=== PATIENT | male | born 1980 | race Caucasian/White ===

== ENCOUNTER 2018-07-20 13:29 | Inpatient (IN) | payer MEDICAID ==
[~2018-07-20] VITALS: Ht 185.4 cm; Wt 145.6 kg
--- NOTE | ~2018-07-20 | MORECARE ---
CASE MANAGEMENT DISCHARGE SUMMARY PATIENT: ALESSANDRO DAWSON UNIT: [id number] ADM DATE: 07/20/18 AGE: 38 : [birth year] SEX: M ROOM/BED: D.2207 AUTHOR: MERCED,DOC PHYSICIAN: REFERRING PHYSICIAN: DONNA CARRANZA MD DATE OF SERVICE: 07/25/18 Discharge Plan Patient Name: ALESSANDRO DAWSON Facility: [facility]:[place] : 1980 Planned Disposition: Home Anticipated Discharge Date: Discharge Date: Expected LOS: Initial Reviewer: [email or web address] Initial Review Date: 07/20/2018 Generated: 07/25/18 2:47 pm Comments DCP- Discharge Planning Updated by [email or web address]: Gisella Carter on 07/25/18 12:[address] Patient Name: ALESSANDRO DAWSON Admission Status: ER Accout number: [id number] Admission Date: 07-20-2018 : 1980 Admission Diagnosis:CUTANEOUS ABSCESS OF GROIN Attending: DONNA CARRANZA Current LOS: 5 Anticipated DC Date: Planned Disposition: Home Primary Insurance: MEDICAID [place] Discharge Planning Comments: CM met with patient to assess discharge planning needs. Patient lives independently at home where he plans to return today. His parents will be the one to drive him home. He states that he is independent with his care at home and denies any community or needs at this time. We did discuss him getting a PCP and nutrition for wound healing. CM will continue to follow and assist with dc planning as needed Mechanical Equipment Sales Engineer: Gisella Carter DCPIA - Discharge Planning Initial Assessment Updated by [email or web address]: Gisella Carter on 07/25/18 1:36 pm * Is the patient Alert and Oriented? Yes * How many steps to enter\exit or inside your home? 25 * PCP NONE * Pharmacy [facility] [place] * Preadmission Environment Home with Family * ADLs Independent * Equipment None * List name and contact numbers for known caregivers / representatives who currently or will assist patient after discharge: ANDRES (SISTER) [phone] * Verbal permission to speak to the caregivers and representatives has been obtained from the patient. Yes * Community resources currently utilized None * Additional services required to return to the preadmission environment? No * Can the patient safely return to the preadmission environment? Yes * Has this patient been hospitalized within the prior 30 days at any hospital? No Patient Name: ALESSANDRO DAWSON Page 00075 at 1347 All edits/amendments must be made on the electronic document DICTATION DATE: 07/25/181345 MEAL COOK: ROULA 07/25/18 1346 RPT#: [id number] DC DATE: STATUS: ADM IN [facility] [address] [place] [address] END OF REPORT
--- NOTE | ~2018-07-20 | MORECARE ---
CASE MANAGEMENT DISCHARGE SUMMARY PATIENT: ALESSANDRO DAWSON UNIT: [id number] ADM DATE: 07/20/18 AGE: 38 : [birth year] SEX: M ROOM/BED: D.2207 AUTHOR: MERCEDDOC PHYSICIAN: REFERRING PHYSICIAN: DONNA CARRANZA MD DATE OF SERVICE: 08/01/18 Discharge Plan Patient Name: ALESSANDRO DAWSON Facility: [facility]:[place] : 1980 Planned Disposition: Home Anticipated Discharge Date: Discharge Date: 07/25/2018 Expected LOS: 0 Initial Reviewer: [email or web address] Initial Review Date: 07/20/2018 Generated: 08/01/18 9:08 am Comments DCP- Discharge Planning Updated by [email or web address]: Gisella Carter on 07/25/18 12:[address] Patient Name: ALESSANDRO DAWSON Admission Status: ER Accout number: [id number] Admission Date: 07-20-2018 : 1980 Admission Diagnosis:CUTANEOUS ABSCESS OF GROIN Attending: DONNA CARRANZA Current LOS: 5 Anticipated DC Date: Planned Disposition: Home Primary Insurance: MEDICAID [place] Discharge Planning Comments: CM met with patient to assess discharge planning needs. Patient lives independently at home where he plans to return today. His parents will be the one to drive him home. He states that he is independent with his care at home and denies any community or needs at this time. We did discuss him getting a PCP and nutrition for wound healing. CM will continue to follow and assist with dc planning as needed Commanding Officer Homicide Squad: Gisella Carter DCPIA - Discharge Planning Initial Assessment Updated by [email or web address]: Gisella Carter on 07/25/18 1:36 pm * Is the patient Alert and Oriented? Yes * How many steps to enter\exit or inside your home? 25 * PCP NONE * Pharmacy [facility] [place] * Preadmission Environment Home with Family * ADLs Independent * Equipment None * List name and contact numbers for known caregivers / representatives who currently or will assist patient after discharge: ANDRES (SISTER) [phone] * Verbal permission to speak to the caregivers and representatives has been obtained from the patient. Yes * Community resources currently utilized None * Additional services required to return to the preadmission environment? No * Can the patient safely return to the preadmission environment? Yes * Has this patient been hospitalized within the prior 30 days at any hospital? No Last DP export: 07/25/18 12:47 Patient Name: ALESSANDRO DAWSON Page [id number] at 0808 All edits/amendments must be made on the electronic document DICTATION DATE: 08/01/18806 CIRCULAR STUFFER: ROULA 08/01/18806 RPT#: [id number] DC DATE:07/25/18 STATUS: DIS IN [facility] [address] [place] [address] END OF REPORT
--- NOTE | ~2018-07-20 | OP ---
PATIENT NAME: ALESSANDRO DAWSON MEDICAL RECORD: [id number] :[birth year] LOCATION:[facility] ADMISSION DATE:07/20/18 SURGEON: ALEKSANDER CARRANZA MD DATE OF OPERATION: 07/21/2018 PREOPERATIVE DIAGNOSIS: Subcutaneous right groin abscess. POSTOPERATIVE DIAGNOSIS: Subcutaneous right groin abscess. PROCEDURE: Excisional debridement of subcutaneous right groin abscess with marsupialization and packing of the wound. Dimensions of the debridement, including margins, measured 4.8 cm x 3.0 cm and was 6 cm in depth. This tunneled to the right and to the left at the 10 o'clock position as well as from the 2 o'clock to 4 o'clock position. SURGEON: Aleksander Carranza MD POWER TOOL REPAIR TECHNICIAN: None. BLOOD LOSS: Minimal. ANESTHESIA: General. COMPLICATIONS: None. The risks, possible complications and alternatives to procedure were explained to the patient. He elects to proceed. OPERATIVE COURSE: The patient was conveyed to the operating room electively on 07/21/2018. General anesthesia was induced by the anesthesia staff. The genitals were sterilely prepped and draped. Through the use of double curvilinear incisions, I excised the skin and subcutaneous tissue overlying the abscess cavity. The excised tissue are consistent of skin and subcutaneous tissue as well as abscess cavity. I encountered a large amount of beige pus. This was cultured. It was aspirated. I excised some more of the skin and subcutaneous tissue as well as a portion of the overlying abscess cavity. The final excised margins are listed above. The excision was performed sharply with a scalpel and was performed back to healthy bleeding tissue. I curetted out the wound with a bone curette. I then marsupialized the wound with a running locking 3-0 Vicryl Rapide suture. I then packed the wound with 4-inch Kerlix soaked in quarter strength Dakin's. A sterile dressing was applied. The patient was then extubated and conveyed to post-anesthesia care unit where he was in stable condition. I will plan for him to stay in the hospital for 2 to 3 days on intravenous antibiotics. I will obtain an infectious disease consultation. I will plan to unpack the wound in 2 to 3 days. TRANSINT:[id number] Voice Confirmation ID: [id number] DOCUMENT ID: [id number] OPERATIVE REPORT [id number] BROWN,ALEKSANDER LOVE MD at 1004 CC: ALEKSANDER ROBERTS MD and Shady CELESTIN [id number] DICTATION DATE: 07/21/18 1431 VAN CDL DRIVER: 07/21/18 1448 ADM IN [facility] [address] [place] [id number]
[2018-07-20 16:58] LABS: BASOPHILS 0.1 % (0-2); EOSINOPHILS 0.4 % (0-7); HEMATOCRIT 40.4 % (42.0-54.0); HEMOGLOBIN 14.5 g/dL (13.5-17.5); IMMATURE GRANULOCYTES 0.4 % (0-5); LYMPHOCYTES 17.9 % (15-50); MCH 31.7 pg (26.0-34.0); MCHC 35.9 g/dL (31.0-37.0); MCV 88.4 fL (80.0-100.0); MEAN PLATELET VOLUME 9.2 fL (7.4-10.4); MONOCYTES 10.8 % (2-11); NEUTROPHILS 70.4 % (40-80); PLATELET COUNT 277 10x3/uL (130-400); RBC 4.57 10x6/uL (4.20-6.10); RDW 11.5 % (11.5-14.5); WBC 17.6 10x3/uL (4.8-10.8)
[2018-07-20 17:19] LABS: ALBUMIN 2.6 g/dL (3.4-5.0); ALKALINE PHOSPHATASE 108 U/L (46-116); ALT (SGPT) 18 U/L (10-68); BILIRUBIN - TOTAL 0.45 mg/dL (0.2-1.3); CALC OSMOLALITY 275 mosm/kg (275-300); CALCIUM 9.4 mg/dL (8.5-10.1); CARBON DIOXIDE 24.9 mmol/L (21.0-32.0); CHLORIDE - SERUM 96 mmol/L (98-107); CREATININE - SERUM 0.9 mg/dL (0.6-1.3); POTASSIUM - SERUM 4.3 mmol/L (3.5-5.1); PROTEIN - SERUM 7.6 g/dL (6.4-8.2); SODIUM 132 mmol/L (136-145); UREA NITROGEN 11 mg/dL (7-18); eGFR NON AFRICAN AMERICAN > 90 mL/min (90-120)
[2018-07-20 17:22] LABS: GLUCOSE 321 mg/dL (74-106)
[2018-07-20 23:13] VITALS: BP 139/85; BMI 42.4
[2018-07-21 04:10] LABS: APPEARANCE CLEAR (CLEAR); BILIRUBIN NEGATIVE (NEGATIVE); COLOR YELLOW (YELLOW); GLUCOSE 1000 mg/dL (NEGATIVE); KETONE SMALL mg/dL (NEGATIVE); NITRITE NEGATIVE (NEGATIVE); PROTEIN NEGATIVE (NEGATIVE); UROBILINOGEN NORMAL (NORMAL)
[2018-07-21 05:12] VITALS: BP 139/85
[2018-07-21 05:18] VITALS: BP 115/82
[2018-07-21 06:00] LABS: BASOPHILS 0.1 % (0-2); EOSINOPHILS 0.7 % (0-7); HEMATOCRIT 38.3 % (42.0-54.0); HEMOGLOBIN 13.3 g/dL (13.5-17.5); IMMATURE GRANULOCYTES 0.3 % (0-5); LYMPHOCYTES 17.4 % (15-50); MCH 31.1 pg (26.0-34.0); MCHC 34.7 g/dL (31.0-37.0); MCV 89.7 fL (80.0-100.0); MEAN PLATELET VOLUME 9.5 fL (7.4-10.4); MONOCYTES 10.2 % (2-11); NEUTROPHILS 71.3 % (40-80); PLATELET COUNT 291 10x3/uL (130-400); RBC 4.27 10x6/uL (4.20-6.10); RDW 11.8 % (11.5-14.5); WBC 15.3 10x3/uL (4.8-10.8)
[2018-07-21 06:27] LABS: ALBUMIN 2.2 g/dL (3.4-5.0); ALKALINE PHOSPHATASE 95 U/L (46-116); ALT (SGPT) 20 U/L (10-68); CALC OSMOLALITY 278 mosm/kg (275-300); CALCIUM 8.3 mg/dL (8.5-10.1); CHLORIDE - SERUM 99 mmol/L (98-107); CREATININE - SERUM 0.8 mg/dL (0.6-1.3); GLUCOSE 356 mg/dL (74-106); POTASSIUM - SERUM 4.1 mmol/L (3.5-5.1); PROTEIN - SERUM 6.5 g/dL (6.4-8.2); SODIUM 133 mmol/L (136-145); UREA NITROGEN 9 mg/dL (7-18); eGFR NON AFRICAN AMERICAN > 90 mL/min (90-120)
[2018-07-21 08:45] VITALS: BP 116/85
[2018-07-21 12:45] VITALS: BP 127/80
[2018-07-21 14:23] VITALS: Ht 185.4 cm; Wt 145.6 kg
[2018-07-21 15:14] VITALS: BP 115/70
[2018-07-21 20:00] VITALS: BP 106/63
[2018-07-22] VITALS: BP 134/77
[2018-07-22 04:00] VITALS: BP 123/82
[2018-07-22 05:07] LABS: BASOPHILS 0.2 % (0-2); HEMATOCRIT 37.2 % (42.0-54.0); HEMOGLOBIN 12.9 g/dL (13.5-17.5); IMMATURE GRANULOCYTES 0.4 % (0-5); MCH 31.4 pg (26.0-34.0); MCHC 34.7 g/dL (31.0-37.0); MCV 90.5 fL (80.0-100.0); MEAN PLATELET VOLUME 9.2 fL (7.4-10.4); MONOCYTES 10.3 % (2-11); NEUTROPHILS 68.1 % (40-80); PLATELET COUNT 266 10x3/uL (130-400); RBC 4.11 10x6/uL (4.20-6.10); RDW 11.8 % (11.5-14.5); WBC 13.6 10x3/uL (4.8-10.8)
[2018-07-22 05:29] LABS: ALBUMIN 1.9 g/dL (3.4-5.0); ALKALINE PHOSPHATASE 97 U/L (46-116); ALT (SGPT) 19 U/L (10-68); BILIRUBIN - TOTAL 0.28 mg/dL (0.2-1.3); CALC OSMOLALITY 277 mosm/kg (275-300); CALCIUM 8.2 mg/dL (8.5-10.1); CARBON DIOXIDE 25.7 mmol/L (21.0-32.0); CHLORIDE - SERUM 98 mmol/L (98-107); CREATININE - SERUM 0.9 mg/dL (0.6-1.3); GLUCOSE 338 mg/dL (74-106); MAGNESIUM - SERUM 1.7 mg/dL (1.8-2.4); PHOSPHOROUS 2.9 mg/dL (2.5-4.9); PROTEIN - SERUM 6.4 g/dL (6.4-8.2); SODIUM 133 mmol/L (136-145); UREA NITROGEN 10 mg/dL (7-18); eGFR NON AFRICAN AMERICAN > 90 mL/min (90-120)
[2018-07-22 09:12] VITALS: BP 131/83
[2018-07-22 13:46] VITALS: BP 136/86
[2018-07-22 16:49] VITALS: BP 142/88
[2018-07-22 20:00] VITALS: BP 129/72
[2018-07-23 04:00] VITALS: BP 137/86
[2018-07-23 12:33] VITALS: BP 117/74
[2018-07-23 17:34] VITALS: BP 142/95
[2018-07-23 19:50] VITALS: BP 140/80
[2018-07-24] VITALS: BP 122/81
[2018-07-24 04:00] VITALS: BP 140/86
[2018-07-24 05:28] LABS: BASOPHILS 0.3 % (0-2); EOSINOPHILS 3.4 % (0-7); HEMATOCRIT 35.9 % (42.0-54.0); HEMOGLOBIN 12.3 g/dL (13.5-17.5); IMMATURE GRANULOCYTES 0.8 % (0-5); LYMPHOCYTES 27.6 % (15-50); MCH 30.9 pg (26.0-34.0); MCHC 34.3 g/dL (31.0-37.0); MCV 90.2 fL (80.0-100.0); MEAN PLATELET VOLUME 9.3 fL (7.4-10.4); MONOCYTES 8.7 % (2-11); NEUTROPHILS 59.2 % (40-80); RBC 3.98 10x6/uL (4.20-6.10); RDW 11.7 % (11.5-14.5)
[2018-07-24 05:34] LABS: PLATELET COUNT 330 10x3/uL (130-400)
[2018-07-24 06:09] LABS: CALC OSMOLALITY 286 mosm/kg (275-300); CALCIUM 8.9 mg/dL (8.5-10.1); CARBON DIOXIDE 25.5 mmol/L (21.0-32.0); CHLORIDE - SERUM 101 mmol/L (98-107); CREATININE - SERUM 0.8 mg/dL (0.6-1.3); GLUCOSE 367 mg/dL (74-106); POTASSIUM - SERUM 4.1 mmol/L (3.5-5.1); SODIUM 136 mmol/L (136-145); UREA NITROGEN 12 mg/dL (7-18); eGFR NON AFRICAN AMERICAN > 90 mL/min (90-120)
[2018-07-24 16:49] VITALS: BP 140/78
[2018-07-24 20:00] VITALS: BP 134/83
[2018-07-25 04:00] VITALS: BP 134/77
[2018-07-25 05:49] LABS: BASOPHILS 0.4 % (0-2); EOSINOPHILS 2.7 % (0-7); HEMATOCRIT 38.9 % (42.0-54.0); HEMOGLOBIN 13.4 g/dL (13.5-17.5); IMMATURE GRANULOCYTES 1.1 % (0-5); LYMPHOCYTES 31.4 % (15-50); MCH 31.3 pg (26.0-34.0); MCHC 34.4 g/dL (31.0-37.0); MCV 90.9 fL (80.0-100.0); MEAN PLATELET VOLUME 9.3 fL (7.4-10.4); MONOCYTES 8.7 % (2-11); NEUTROPHILS 55.7 % (40-80); PLATELET COUNT 385 10x3/uL (130-400); RBC 4.28 10x6/uL (4.20-6.10); RDW 11.9 % (11.5-14.5)
[2018-07-25 05:58] LABS: CALC OSMOLALITY 289 mosm/kg (275-300); CALCIUM 9.2 mg/dL (8.5-10.1); CARBON DIOXIDE 28.8 mmol/L (21.0-32.0); CHLORIDE - SERUM 100 mmol/L (98-107); CREATININE - SERUM 0.9 mg/dL (0.6-1.3); GLUCOSE 372 mg/dL (74-106); SODIUM 138 mmol/L (136-145); UREA NITROGEN 11 mg/dL (7-18); eGFR NON AFRICAN AMERICAN > 90 mL/min (90-120)
[2018-07-25 11:41] VITALS: BP 132/91
[2018-07-25] MEDS ORDERED: AMPICILLIN TRI250 MG PO (13:04)
[2018-07-25] MEDS ORDERED: DOXYCYCLINE HY100 M2 PO (13:05)
[2018-07-25] MEDS ORDERED: HYDROCODON-ACE1 EAC7 PO (13:06)
[2018-07-25] MEDS ORDERED: KEFLEX500 MG PO (14:15)
== END 2018-07-25 15:18 | disposition home or self-care (01) | DRG 571 ==
LOC: D.ER 13:29 → D.MS 21:42
PROVIDERS: Emergency Medicine; Family Medicine; Surgery
PROC: 0JBL0ZZ Excision of Right Upper Leg Subcutaneous Tissue and Fascia, Open Approach (ICD-10-PCS; principal; 2018-07-21 12:45)
DX: L02.214 Cutaneous abscess of groin (principal); Z68.41 Body mass index [BMI] 40.0-44.9, adult; F17.210 Nicotine dependence, cigarettes, uncomplicated; L03.314 Cellulitis of groin; B95.61 Methicillin susceptible Staphylococcus aureus infection as the cause of diseases classified elsewhere; B95.1 Streptococcus, group B, as the cause of diseases classified elsewhere; M19.90 Unspecified osteoarthritis, unspecified site; Z99.81 Dependence on supplemental oxygen; E66.9 Obesity, unspecified

== ENCOUNTER 2021-04-03 06:47 | Emergency (ER) | payer OTHER ==
[~2021-04-03] VITALS: Ht 185.4 cm; Wt 109.1 kg
[~2021-04-03 06:47] MED LIST: AMPICILLIN TRI250 MG PO; DOXYCYCLINE HY100 M2 PO; HYDROCODON-ACE1 EAC7 PO; KEFLEX500 MG PO
[2021-04-03 07:14] VITALS: Ht 185.4 cm; Wt 109.1 kg
[2021-04-03] MEDS ORDERED: LEVEMIR IN100 UNITS/ SC (07:19)
[2021-04-03] MEDS ORDERED: GABAPENTIN100 MG (07:21)
[2021-04-03] MEDS ORDERED: GLUCOPHAGE850 MG (07:22)
[2021-04-03 10:11] VITALS: BP 116/77
[2021-04-03 10:51] LABS: BACTERIA FEW HPF (<MOD); BILIRUBIN NEGATIVE (NEGATIVE); KETONE NEGATIVE mg/dL (< 1+); NITRITE NEGATIVE (NEGATIVE); SQUAMOUS EPITHELIAL 1 HPF (0-4); UROBILINOGEN NORMAL mg/dL (< 2); WHITE CELLS - URINE 11 HPF (0-1)
== END 2021-04-03 11:52 | disposition home or self-care (01) ==
LOC: D.ER 06:47
PROVIDERS: Family Medicine
DX: R10.9 Unspecified abdominal pain (principal); E11.9 Type 2 diabetes mellitus without complications; Z79.84 Long term (current) use of oral hypoglycemic drugs